=== PATIENT | female | born 1965 | race African-American/Black ===

== ENCOUNTER 2020-05-27 22:00 | Emergency (ER) | payer MEDICAID ==
[~2020-05-27] VITALS: Ht 170.2 cm; Wt 87.0 kg
[2020-05-27] MEDS ORDERED: KETOROLAC 60MG/2ML VIAL IM ONE (22:30)
[2020-05-27] MEDS ORDERED: IBUP-2030 MT (22:33)
[2020-05-27] MEDS ORDERED: CHLO473M2 MT (22:33)
[2020-05-27] MEDS ORDERED: AMOX-494 MT (22:33)
[2020-05-27 23:55] VITALS: BP 186/107
== END 2020-05-28 00:06 | disposition home or self-care (01) ==
LOC: ER 22:00
DX: K04.7 Periapical abscess without sinus (principal); M54.5 Low back pain; R03.0 Elevated blood-pressure reading, without diagnosis of hypertension; Z79.899 Other long term (current) drug therapy; Z90.710 Acquired absence of both cervix and uterus
CPT/HCPCS: 96372; 99283; J1885

== ENCOUNTER 2020-11-07 23:39 | Emergency (ER) | payer MEDICAID ==
[~2020-11-07] VITALS: Ht 170.2 cm; Wt 87.0 kg
[~2020-11-07 23:39] MED LIST: AMOX-494 MT; CHLO473M2 MT; IBUP-2030 MT
[2020-11-08 00:17] VITALS: BP 150/93
[2020-11-08] MEDS ORDERED: DOXY100T2 MT (00:40)
[2020-11-08] MEDS ORDERED: LIDOCAINE HCL/PF 1% 10 MG/ML 5ML VIAL INFIL ONE (00:45)
[2020-11-08] MEDS ORDERED: CEFTRIAXONE SODIUM 500 MG/VIAL IM ONE (00:45)
[2020-11-08] MEDS ORDERED: DOXYCYCLINE HYCLATE 100MG CAPSULE PO ONE (00:45)
== END 2020-11-08 01:20 | disposition home or self-care (01) ==
LOC: ER 23:58
DX: N76.0 Acute vaginitis (principal); E11.9 Type 2 diabetes mellitus without complications; Z86.19 Personal history of other infectious and parasitic diseases; Z90.710 Acquired absence of both cervix and uterus; Z88.8 Allergy status to other drugs, medicaments and biological substances
CPT/HCPCS: 96372; 99283; J0696; J3490